=== PATIENT | female | born 1965 | race Caucasian/White ===

== ENCOUNTER 2017-09-14 04:34 | Inpatient (IN) | payer BC, OTHER ==
[2017-09-14] MEDS ORDERED: Sodium Chloride 0.9% 1,000 ML IV SCH ×2 (05:45)
[2017-09-14] MEDS ORDERED: Pantoprazole 40 MG Vial IVPUSH ONE (05:45)
[2017-09-14] MEDS ORDERED: Pantoprazole 40 MG Vial ONE (05:58)
[2017-09-14] MEDS ORDERED: Ondansetron 4 MG/2 ML SDV IV PRN (06:26)
[2017-09-14] MEDS ORDERED: Morphine 2 MG/ML Syringe IVPUSH PRN (06:26)
[2017-09-14] MEDS ORDERED: Pantoprazole 80 MG in Sodium Chloride 0.9% 100 ML IV SCH (06:45)
[2017-09-14] MEDS ORDERED: Sodium Chloride 0.9% 250 ML IV SCH (07:15)
[2017-09-14] MEDS: Sodium Chloride 0.9% 250 ML IV SCH ×2 (07:53→09:20)
[2017-09-14] MEDS: Pantoprazole 80 MG in Sodium Chloride 0.9% 100 ML IV SCH ×2 (07:58→17:09)
[2017-09-14] MEDS: Sodium Chloride 0.9% 10 ML Syringe FLUSH PRN ×2 (08:00→11:00)
--- NOTE | 2017-09-14 09:20 | PCM.HP ---
H&P History of Present Illness - General Date of Service: 09/14/17 Admit Problem/Dx: Admission Diagnosis/Problem Admission Diagnosis/Problem Bleeding - History of Present Illness Initial Comments - Free Text/Narative: 52-year-old female brought in because of black tarry stools weakness, and and near syncope. She was previously well with exception of upper respiratory symptoms seen yesterday evening Z-Angelito after the clinic visit was very weak and was passing melena stools. Upon presentation to the ER she was found to have a hemoglobin of 5.4. She denies any other bleeding areas, does not use alcohol in excess or NSAIDs in excess. She normally gets her period Either. No abdominal pain or epigastric pain of any kind. 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, - Past Surgical History Other HEENT Surgeries/Procedures: wisdom teeth extraction GI Surgical History: Reports: Appendectomy Social & Family History - Family History Family Medical History: Unobtainable Cardiac: Reports: CAD, High Cholesterol, Hypertension, Stent, Other (See Below) Other Cardiac Family History: both her mom and dad - Tobacco Use Smoking Status *Q: Never Smoker Second Hand Smoke Exposure: No - Caffeine Use Caffeine Use: Reports: Soda Other Caffeine Use: diet Coke--couple cans a day - Alcohol Use Days Per Week of Alcohol Use: 1 Number of Drinks Per Day: 5 Total Drinks Per Week: 5 Date of Last Drink: 09/09/17 - Recreational Drug Use Recreational Drug Use: No H&P Review of Systems - Review of Systems: Review Of Systems: ROS reveals no pertinent complaints other than HPI. Exam - Exam Exam: See Below - Vital Signs Vital Signs: Last Vital Signs Temp 99.1 F 09/14/17 08:01 Pulse 100 09/14/17 08:01 Resp 20 09/14/17 08:01 BP 116/52 L 09/14/17 08:01 Pulse Ox 100 09/14/17 06:45 Weight: 78.018 kg - Exam General: Alert, Oriented, 4 HEENT: No: Scleral Icterus Neck: Supple, Trachea Midline, 2 Lungs: Clear to Auscultation, Normal Respiratory Effort Cardiovascular: Regular Rate, Regular Rhythm GI/Abdominal Exam: Normal Bowel Sounds, Soft, Non-Tender, No Organomegaly, No Distention, No Abnormal Bruit, No Mass, Pelvis Stable (Female) Exam: Normal External Exam, Normal Speculum Exam, Normal Bimanual Exam Rectal (Female) Exam: Deferred Back Exam: Normal Inspection, Full Range of Motion, NT Extremities: Normal Inspection, Normal Range of Motion, Non-Tender, No Pedal Edema, Normal Capillary Refill Skin: Warm, Dry, Intact Neurological: Cranial Nerves Intact, Reflexes Equal Bilateral Neuro Extensive - Mental Status: Alert, Oriented x3, Normal Mood/Affect, Normal Cognition Neuro Extensive - Motor, Sensory, Reflexes: CN II-XII Intact, Normal Gait, Normal Reflexes Psychiatric: Alert, Normal Affect, Normal Mood - Patient Data Result Diagrams: 09/14/17 17:25 09/14/17 17:25 EKG INTERPRETATION Rhythm: NSR *Q Meaningful Use (ADM) - VTE *Q VTE Criteria *Q: - Stroke *Q Stroke Criteria *Q: - AMI *Q AMI Criteria *Q: - Problem List (1) Anemia SNOMED Code(s): 997916205 ICD Code: D64.9 - ANEMIA, UNSPECIFIED Status: Acute Current Visit: Yes (2) Melena SNOMED Code(s): 5698424 ICD Code: K92.1 - MELENA Status: Acute Current Visit: Yes (3) URI (upper respiratory infection) SNOMED Code(s): 80939855 ICD Code: J06.9 - ACUTE UPPER RESPIRATORY INFECTION, UNSPECIFIED Status: Acute Current Visit: Yes Problem List Initiated/Reviewed/Updated: Yes Orders Last 24hrs: Active Orders 24 hr Category Date Time Status VTE/DVT Education [RC] Per Unit Routine Care 09/14/17 06:37 Active Vital Signs [RC] Q4H Care 09/14/17 06:37 Active Nothing per Oral Now Diet [DIET] Diet 09/14/17 Breakfast Ordered Chest 1V Frontal [CR] AM Exams 09/15/17 05:11 Ordered CBC WITH AUTO DIFF [HEME] Timed Lab 09/14/17 17:00 Ordered Pantoprazole [ProTONIX IV] 80 mg Med 09/14/17 08:00 Active Sodium Chloride 0.9% [Normal Saline] 100 ml IV Q10H Sodium Chloride 0.9% [Normal Saline] 250 ml Med 09/14/17 07:15 Active IV ASDIRECTED Transfuse PRBC [Transfuse Red Blood Cells] [COMM] Oth 09/14/17 07:15 Ordered Urgent Medication Orders Sodium Chloride (Normal Saline) 1,000 mls @ 200 mls/hr IV ASDIRECTED [facility] Last Infusion: 09/14/17 06:35 Dose: 200 mls/hr Admin: 09/14/17 05:44 Dose: 200 mls/hr Sodium Chloride (Normal Saline) 1,000 mls @ 200 mls/hr IV ASDIRECTED [facility] Last Admin: 09/14/17 07:29 Dose: 200 mls/hr Sodium Chloride (Normal Saline) 250 mls @ 100 mls/hr IV ASDIRECTED [facility] Last Admin: 09/14/17 07:53 Dose: 100 mls/hr Sodium Chloride (Normal Saline) 250 mls @ 100 mls/hr IV ASDIRECTED [facility] Pantoprazole Sodium 80 mg/ (Sodium Chloride) 100 mls @ 10 mls/hr IV Q10H [facility] Last Admin: 09/14/17 07:58 Dose: 10 mls/hr Morphine Sulfate (Morphine) 2 mg IVPUSH Q2H PRN PRN Reason: Pain (severe 7-10) Ondansetron HCl (Zofran) 8 mg IV Q4H PRN PRN Reason: Nausea/Vomiting Assessment/Plan Comment:: I compared her hemoglobin from 2014 and is a significant drop. By the time I saw her surety had 4 units typed and screened and she was lined up to get 2 units Rightaway. In addition to normal saline, and IV Protonix drip. Dr. Centeno has been consulted for endoscopy. Potassium was slightly low at 3.3 would be to another one at 4 PM along with another CBC.
--- NOTE | 2017-09-14 09:22 | PCM.CONS ---
H&P History of Present Illness - General Date of Service: 09/14/17 Admit Problem/Dx: Admission Diagnosis/Problem Admission Diagnosis/Problem Bleeding Source of Information: Patient - History of Present Illness Initial Comments - Free Text/Narative: 52 yo phuong who was admitted with a complaint of weakness. This started last pm. She was noted to pale as well. She apparently passed some black stools on Monday. This occurred for one day only. In the ED was noted to have a low Hgb of 5.4. She denies any hx of abd pain, nausea or vomiting. No previous hx of gi bleed. She denies any chronic health issues. 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, - Past Surgical History Other HEENT Surgeries/Procedures: wisdom teeth extraction GI Surgical History: Reports: Appendectomy Social & Family History - Family History Family Medical History: Unobtainable Cardiac: Reports: CAD, High Cholesterol, Hypertension, Stent, Other (See Below) Other Cardiac Family History: both her mom and dad - Tobacco Use Smoking Status *Q: Never Smoker Second Hand Smoke Exposure: No - Caffeine Use Caffeine Use: Reports: Soda Other Caffeine Use: diet Coke--couple cans a day - Alcohol Use Days Per Week of Alcohol Use: 1 Number of Drinks Per Day: 5 Total Drinks Per Week: 5 Date of Last Drink: 09/09/17 - Recreational Drug Use Recreational Drug Use: No H&P Review of Systems - Review of Systems: Review Of Systems: See Below General: Reports: No Symptoms HEENT: Reports: No Symptoms Pulmonary: Reports: Cough Cardiovascular: Denies: Chest Pain Gastrointestinal: Reports: Melena Genitourinary: Reports: No Symptoms Musculoskeletal: Reports: No Symptoms Skin: Reports: No Symptoms Neurological: Reports: Numbness (finger tips ) Exam - Exam Exam: See Below - Vital Signs Vital Signs: Last Vital Signs Temp 37.3 C 09/14/17 08:01 Pulse 100 09/14/17 08:01 Resp 20 09/14/17 08:01 BP 116/52 L 09/14/17 08:01 Pulse Ox 100 09/14/17 06:45 Weight: 78.018 kg - Exam General: Alert, Oriented, Cooperative. No: Mild Distress Lungs: Clear to Auscultation, Normal Respiratory Effort Cardiovascular: Regular Rate, Regular Rhythm GI/Abdominal Exam: Normal Bowel Sounds, Soft, Non-Tender, No Distention Rectal (Female) Exam: Deferred Back Exam: Normal Inspection Skin: Warm, Dry, Intact, Other (pale ) - Patient Data Result Diagrams: 09/14/17 05:25 09/14/17 05:25 Consult PN Assessment/Plan Procedures: Procedures ASSAY OF TROPONIN QUANT (03/17/14) (1) Upper GI bleed SNOMED Code(s): 35900803 Code(s): K92.2 - GASTROINTESTINAL HEMORRHAGE, UNSPECIFIED Current Visit: Yes Problem List Initiated/Reviewed/Updated: Yes My Orders Last 24 Hours: recommend an upper endoscopy. the procedure and risks were explained to the pt to include bleeding, infection and perforation. she expressed understanding and asks us to proceed.
[2017-09-14] MEDS ORDERED: Propofol 200 MG/20 ML SDV IV ONE (11:30)
[2017-09-14] MEDS ORDERED: Lidocaine 2% 100 MG/5 ML Syringe IVPUSH ONE (11:30)
[2017-09-14] MEDS ORDERED: Midazolam 1 MG/ML 2 ML SDV IV ONE (11:30)
--- NOTE | 2017-09-14 12:05 | PCM.OPNOTE ---
- General Post-Op/Procedure Note Date of Surgery/Procedure: 09/14/17 Operative Procedure(s): egd. with bx Findings: mild gastritis fundic gland hyperplasia Pre Op Diagnosis: upper gi bleed Post-Op Diagnosis: mild gastritis. fundic gland hyperplasia Anesthesia Technique: MAC Primary Surgeon: Kenny Centeno Anesthesia Provider: Kate Cuellar Pathology: gastric and random polyp bx Complications: None Condition: Fair Free Text/Narrative:: Intake & Output 09/13/17 09/14/17 09/14/17 22:59 06:59 14:59 Intake Total 430 Balance 430 see dicatition
--- NOTE | 2017-09-14 14:01 | ER ---
DATE SEEN: 09/14/2017 TIME SEEN: The patient was seen at 0445 hours this morning. CHIEF COMPLAINT: Weakness, spasm across my neck and legs, and weak legs. HISTORY OF PRESENT ILLNESS: She was seen on 09/12/2017 and was treated for bronchitis. She had a minimal cough on the basis of the patient's discretion. No history of diarrhea, vomiting, abdominal pain, chest pain, shortness of breath, back pain, arm pain, jaw pain, or neck pain. She had dark stool 2 days ago. Her vision is not compromised. No history of MS. No family history of MS. She has no history of diabetes. She was placed on Mucinex and Z-Angelito on 09/12/2017. PAST MEDICAL HISTORY: Noncontributory. No previous surgery. She has no diabetes. No heart disease. No high blood pressure. No asthma or other significant hospitalization. 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 REVIEW OF SYSTEMS: Otherwise negative, except for noted above. FAMILY HISTORY: Her brother is alive and well. Mother and father have heart disease. SOCIAL HISTORY: The patient is , and her is accompanying her this morning. PHYSICAL EXAMINATION: VITAL SIGNS: Blood pressure 115/54, heart rate 110, respirations 19, oxygen saturation 100%, and temperature 36.8 degrees centigrade. CONSTITUTIONAL: The patient has pale appearance, looks slightly yellow-brown appearance. The patient looks sick. Feels tired. HEENT: PERRLA intact. TMs negative. Pharynx without abnormality. Semi-moist mucosa. NECK: No thyromegaly. No cervical adenopathy. No masses in the neck. No bruits. LUNGS: Clear without rales, rhonchi, or wheezes. HEART: Sinus tachycardia. No murmur noted. No heave. ABDOMEN: Soft. No guarding. No abdominal discomfort. No CVA percussion tenderness. PELVIC: Not performed. Stool guaiac is positive for hemoglobin. EXTREMITIES: Lower extremities, mild discomfort with palpation of muscles in upper and lower extremities, but not significant. Deep tendon reflexes normal in upper and lower extremities. Cranial nerves 2 through 12 intact. No pronator drift. No abnormality of Romberg, but she feels weak and lightheaded when she stands up, and she wants to sit down because she feels dizzy. LABORATORY FINDINGS: Hemoglobin 5.4, white count 15,600, PMNs 74, lymphocytes 21, monos 5, and hematocrit of 15.7. Potassium 3.3, sodium 142, chloride 105, CO2 24, BUN 30, and creatinine 0.9. GFR greater than 60. BUN to creatinine ratio of 33. Glucose 161. Lactate pending. Blood cultures obtained, protein 5.8, and albumin 2.5, both are low. Alkaline phosphatase is low at 40. EKG pending. ASSESSMENT: 1. Upper gastrointestinal bleed with melena. Hemoglobin 5.6. 2. The patient is not on anticoagulation. 3. Myalgia and lightheadedness secondary to decreased perfusion with the anemia. 4. No evidence for bronchitis. 5. Family history of mother and father with heart disease. EKG and troponin pending. Doubt myocardial infarction. 6. The patient also had a workup for potential infection, sepsis/urinary tract infection with blood cultures and lactate pending. Troponin pending to rule out myocardial infarction. EKG pending to rule out myocardial infarction. The patient's status will be discussed with Dr. 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 The patient was typed and crossed for 4 units of blood, 2 units to be started stat. /[id number] CARLY/GLYNN
--- NOTE | 2017-09-14 14:20 | OR ---
DATE OF OPERATION: 09/14/2017 SURGEON: Kenny Centeno MD PROCEDURE PERFORMED: Upper endoscopy with cold forceps biopsy. PREOPERATIVE DIAGNOSIS: Upper gastrointestinal bleed. POSTOPERATIVE DIAGNOSIS: Gastritis and fundic gland hyperplasia. INDICATIONS FOR PROCEDURE: This is a 52-year-old white female, who was admitted early this morning with marked anemia and a history of melena on Monday. This has spontaneously resolved. Her hemoglobin was 5.3, and after 2 units, she was transfused up to 7.7. As part of a workup to determine the cause of her anemia, she was offered and accepted an upper endoscopy. DESCRIPTION OF OPERATION: After an excellent IV sedation was administered, the bite block was inserted. Flexible endoscope was passed without difficulty down to the patient's esophagus into the stomach. Stomach was insufflated. Scope passed through the pylorus to the second portion of the duodenum and slowly withdrawn. The following findings were noted. Duodenum was unremarkable. Stomach demonstrated some mild gastritis as well as some fundic gland hyperplasia. Embedded Developer biopsies were taken of the fundic gland hyperplasia and of the gastric mucosa. The esophagus was unremarkable. Stomach was deflated. Scope was removed. The patient tolerated the procedure well, was taken to recovery in good condition. /[id number] /MODL
[2017-09-14] MEDS ORDERED: Polyethylene Glycol/Electrolytes 4,000 ML Bottle PO ONE (15:00)
[2017-09-14] MEDS: Sodium Chloride 0.9% 1,000 ML IV SCH (17:09)
[2017-09-14] MEDS ORDERED: Polyethylene Glycol 3350 Powder 238 GM Bot PO ONE (18:33)
[2017-09-14] MEDS ORDERED: Potassium Chloride 20 MEQ in Premix Bag 1 BAG IV ONE ×5 (18:35→20:35)
[2017-09-14] MEDS ORDERED: Potassium Chloride 100 ML ONE (21:22)
[2017-09-15] MEDS: Sodium Chloride 0.9% 1,000 ML IV SCH ×2 (00:57→07:46)
[2017-09-15] MEDS: Pantoprazole 80 MG in Sodium Chloride 0.9% 100 ML IV SCH ×2 (02:48→06:32)
[2017-09-15] MEDS ORDERED: Lactated Ringers 1,000 ML IV ONE (07:09)
[2017-09-15] MEDS ORDERED: Propofol 200 MG/20 ML SDV IV ONE (07:09)
[2017-09-15] MEDS ORDERED: Midazolam 1 MG/ML 2 ML SDV IV ONE (07:09)
--- NOTE | 2017-09-15 07:31 | PCM.OPNOTE ---
- General Post-Op/Procedure Note Date of Surgery/Procedure: 09/15/17 Operative Procedure(s): c scope Findings: normal colon Pre Op Diagnosis: gi bleed Post-Op Diagnosis: nl scope Anesthesia Technique: MAC Primary Surgeon: Kenny Centeno Anesthesia Provider: Kate Cuellar Pathology: none Complications: None Condition: Fair Free Text/Narrative:: see dictation
--- NOTE | 2017-09-15 07:33 | PCM.SN ---
- Free Text/Narrative Note: she essentially has a normal scopes except for some fundic gland polyps and mild gastritis. If the bleeding persists would consider a capsule endoscopy. Would feed today and see how she does. Iron supplementation of course.
--- NOTE | 2017-09-15 07:56 | OR ---
DATE OF OPERATION: 09/15/2017 SURGEON: Kenny Centeno MD PROCEDURE PERFORMED: Colonoscopy. PREOPERATIVE DIAGNOSIS: Gastrointestinal bleed. POSTOPERATIVE DIAGNOSIS: Normal colon. INDICATIONS FOR PROCEDURE: This is a 52-year-old white female, who was admitted yesterday with what appeared to be an upper gastrointestinal bleed. She underwent an upper endoscopy and no overt cause of her bleeding was identified. She was recommended to have a colonoscopy to evaluate a lower GI source. DESCRIPTION OF OPERATION: After an excellent IV sedation was administered, digital rectal exam was performed. No marked abnormality was noted. Flexible colonoscope was inserted and advanced to the cecum without difficulty. The prep was excellent. The following findings were noted. Ascending colon, unremarkable. Transverse colon, unremarkable. Descending colon, unremarkable. Sigmoid and rectum were unremarkable. Colon was deflated as the scope was removed. The patient tolerated the procedure well and was taken to recovery room in good condition. RECOMMENDATIONS: We will go ahead and feed the patient, consider capsule endoscopy if the patient continues to show signs of bleeding. Iron supplementation. /[id number] /MODL
[2017-09-15] MEDS ORDERED: Sodium Chloride 0.9% 250 ML IV SCH (08:30)
[2017-09-15] MEDS: Sodium Chloride 0.9% 250 ML IV SCH (08:55)
--- NOTE | 2017-09-15 10:02 | PN ---
DATE SEEN: 09/15/2017 REASON FOR VISIT: Anemia. HISTORY OF PRESENT ILLNESS: This is a 52-year-old female. She complains of feeling fatigued this morning. Hemoglobin is up to 7.2. She otherwise had a good night. REVIEW OF SYSTEMS: No bleeding areas. No chest pain or shortness of breath. SOCIAL HISTORY: Nonsmoker. PHYSICAL EXAMINATION: GENERAL: Nontoxic, afebrile, normotensive. ENT negative. CHEST: Clear. ABDOMEN: Soft. EXTREMITIES: No edema. MENTAL STATUS: Alert. LABORATORY DATA: Hemoglobin is 7.2 with a hematocrit of 20.8. Potassium is 3.2. IMPRESSION: 1. Anemia of unknown reason. 2. Hypokalemia. 3. History of coronary artery disease. PLAN: Discharge the patient after 1 unit of PRBCs. Replace iron by oral ferrous sulfate. Obtain a referral to Hematology today. /[id number] ROCIO/GLYNN
--- NOTE | 2017-09-15 11:10 | DISCH ---
DISCHARGE DATE: 09/15/2017 REASON FOR ADMISSION: 1. Anemia. 2. Hypokalemia. 3. Upper respiratory infection. 4. History of coronary artery disease. DISCHARGE DIAGNOSES: 1. Anemia. 2. Hypokalemia. 3. Upper respiratory infection. 4. History of coronary artery disease. CONSULTATIONS: Dr. Centeno. PROCEDURES: Esophagogastroduodenoscopy and colonoscopy, both unrevealing. BRIEF HISTORY AND HOSPITAL COURSE: This is a 52-year-old female who was admitted for melena stools, weakness, and anemia. She got 3 units total. The colonoscopy and endoscopy did not reveal much in terms of bleeding. Symptoms improved, however, of dizziness and she did not have any active bleeding. She was discharged home today on the with a referring place to see Hematology next week and on iron supplementation. I spent more than 35 minutes in the discharge of the patient. /[id number] ROCIO/GLYNN
--- NOTE | 2017-09-15 11:49 | CR ---
INDICATION: Hemoglobin at 5.7, weak. CHEST: A portable AP upright view of the chest was obtained 09/15/2017, and compared with CT scan of 04/11/2012. The heart appears prominent, emphasized by AP positioning. A definite active infiltrate or effusion was not identified. Overlying EKG leads are noted. IMPRESSION: No acute process. MTDD
[2017-09-17 13:24] LABS: UNSATURATED IRON BIND CAPACITY 89 ug/dL (112-347)
== END 2017-09-15 11:35 | disposition home or self-care (01) | DRG 812 ==
LOC: FB.ED 04:34 → FB.ICU 06:26
PROVIDERS: ADMIT Emergency Medicine; ATTEND Family Medicine
PROC: 0DB68ZX Excision of Stomach, Via Natural or Artificial Opening Endoscopic, Diagnostic (ICD-10-PCS; principal; 2017-09-14)
PROC: 30233N1 Transfusion of Nonautologous Red Blood Cells into Peripheral Vein, Percutaneous Approach (ICD-10-PCS; 2017-09-14)
PROC: 0DJD8ZZ Inspection of Lower Intestinal Tract, Via Natural or Artificial Opening Endoscopic (ICD-10-PCS; 2017-09-15)
PROC: 30233N1 Transfusion of Nonautologous Red Blood Cells into Peripheral Vein, Percutaneous Approach (ICD-10-PCS; 2017-09-15)
DX: D64.89 Other specified anemias (principal); K92.1 Melena; E87.6 Hypokalemia; J06.9 Acute upper respiratory infection, unspecified; I25.10 Atherosclerotic heart disease of native coronary artery without angina pectoris; R53.1 Weakness; R42 Dizziness and giddiness; Z82.49 Family history of ischemic heart disease and other diseases of the circulatory system
CPT/HCPCS: 36415; 36430; 71045; 80048; 80053; 81001; 82272; 82607; 82728; 82746; 83540; 83550; 83605; 84484; 85025; 85027; 85045; 85610; 85730; 86850; 86900; 86901; 86920; 86922; 87040; 87081; 87430; 87804; 88104; 88305; 88342; 93005; 96361; 96374; 99284; A9270-GY; C9113; J2250; J2704; J3480; J7030; J7040; J7050; J7120; P9016